=== PATIENT | female | born 1965 | race Caucasian/White ===

== ENCOUNTER 2020-05-24 13:03 | Emergency (ER) | payer MEDICARE, SELFPAY ==
[~2020-05-24 13:03] MED LIST: BENTYL10 MG PO; CARAFATE1 GM PO; KETOROLAC TROME10 MG PO; LIDOCAINE 5% P1 EACH TOP; MECLIZINE 25MG25 MG PO; MUCINEX 600MG600 MG PO; NEURONTIN300 MG PO; ONDANSETRON ODT4 MG SL; PREDNISONE5 MG PO; PROTONIX 40MG T40 MG PO; SKELAXIN800 MG PO; ZANTAC150 MG PO; ZOFRAN8 MG PO
== END 2020-05-24 15:22 | disposition home or self-care (01) ==
LOC: FER 13:03
DX: G62.9 Polyneuropathy, unspecified (principal); G89.29 Other chronic pain; Z87.39 Personal history of other diseases of the musculoskeletal system and connective tissue; Z79.899 Other long term (current) drug therapy; Z97.0 Presence of artificial eye; Z88.8 Allergy status to other drugs, medicaments and biological substances
CPT/HCPCS: 99283; J1885

== ENCOUNTER 2020-07-19 15:23 | Emergency (ER) | payer MEDICARE, SELFPAY ==
[2020-07-19] MEDS ORDERED: NORCO 5-325 TA1 EACH PO (16:38)
== END 2020-07-19 17:01 | disposition home or self-care (01) ==
LOC: FER 15:23
DX: G62.9 Polyneuropathy, unspecified (principal); G89.29 Other chronic pain
CPT/HCPCS: 99283; J1885

== ENCOUNTER 2020-07-28 19:04 | Emergency (ER) | payer MEDICARE, SELFPAY ==
[~2020-07-28 19:04] MED LIST changes: +NORCO 5-325 TA1 EACH PO
== END 2020-07-28 21:30 | disposition home or self-care (01) ==
LOC: FER 19:04
DX: M54.5 Low back pain (principal); G89.29 Other chronic pain; R20.2 Paresthesia of skin; Z86.69 Personal history of other diseases of the nervous system and sense organs; Z88.8 Allergy status to other drugs, medicaments and biological substances; Z87.39 Personal history of other diseases of the musculoskeletal system and connective tissue
CPT/HCPCS: 99283; J1885

== ENCOUNTER 2020-08-08 16:02 | Emergency (ER) | payer MEDICARE, SELFPAY ==
[2020-08-08] MEDS ORDERED: MEDROL 4MG DOSEP4 MG PO (17:17)
[2021-01-26] MEDS ORDERED: PEPCID AC20 MG PO (12:58)
[2021-01-26] MEDS ORDERED: XANAX0.25 MG PO (12:58)
== END 2020-08-08 18:31 | disposition home or self-care (01) ==
LOC: FER 16:02
DX: L25.9 Unspecified contact dermatitis, unspecified cause (principal); Z88.8 Allergy status to other drugs, medicaments and biological substances
CPT/HCPCS: 99282

== ENCOUNTER 2020-08-15 12:41 | Emergency (ER) | payer MEDICARE, SELFPAY ==
[~2020-08-15 12:41] MED LIST changes: +MEDROL 4MG DOSEP4 MG PO
[2021-01-26] MEDS ORDERED: XANAX0.25 MG PO (12:58)
[2021-01-26] MEDS ORDERED: PEPCID AC20 MG PO (12:58)
== END 2020-08-15 16:08 | disposition home or self-care (01) ==
LOC: FER 12:41
DX: Q80.9 Congenital ichthyosis, unspecified (principal); Z88.8 Allergy status to other drugs, medicaments and biological substances

== ENCOUNTER 2020-10-07 15:01 | Emergency (ER) | payer MEDICARE, SELFPAY | END 2020-10-07 17:39 | disposition home or self-care (01) | LOC: FER 15:01 | DX: G62.9 Polyneuropathy, unspecified (principal); G89.29 Other chronic pain; Z88.8 Allergy status to other drugs, medicaments and biological substances | CPT/HCPCS: J1885; J2405 ==

== ENCOUNTER 2020-12-01 13:46 | Emergency (ER) | payer MEDICARE, SELFPAY ==
[2020-12-01 16:16] LABS: CORONAVIRUS 2019 SARS-COV-2 NEGATIVE (NEGATIVE); INFLUENZA A NAA NEGATIVE (NEGATIVE)
[2020-12-01] MEDS ORDERED: CEFDINIR300 MG PO (16:54)
[2020-12-01] MEDS ORDERED: PREDNISONE5 MG PO (16:54)
[2021-01-26] MEDS ORDERED: PEPCID AC20 MG PO (12:58)
[2021-01-26] MEDS ORDERED: XANAX0.25 MG PO (12:58)
== END 2020-12-01 17:40 | disposition home or self-care (01) ==
LOC: FER 13:46
PROVIDERS: Emergency Medicine
DX: J01.90 Acute sinusitis, unspecified (principal); Z88.6 Allergy status to analgesic agent; Z88.4 Allergy status to anesthetic agent; Z88.2 Allergy status to sulfonamides; Z20.822 Contact with and (suspected) exposure to COVID-19
CPT/HCPCS: J1885; J7512; U0002

== ENCOUNTER 2021-01-11 12:08 | Emergency (ER) | payer MEDICARE ==
[~2021-01-11 12:08] MED LIST changes: +CEFDINIR300 MG PO
[2021-01-11 12:54] LABS: BASOPHIL 0.7 % (0-2); EOSINOPHIL 1.2 % (0-5); HCT 42.9 % (37.0-47.0); LYMPHOCYTE 23.8 % (15-48); MCH 29.4 pg (25.0-31.0); MCHC 32.6 g/dL (32.0-36.0); MCV 89.9 fL (78.0-100.0); MONOCYTE 6.8 % (0-12); MPV 10.6 fL (6.0-9.5); NRBC 0; PLT 259 K/uL (150-400); RBC 4.77 M/uL (4.20-5.40); RDW 13.2 % (11.5-14.0); WBC 7.5 K/uL (4.0-10.5)
[2021-01-11 12:55] LABS: BILIRUBIN NEGATIVE (NEGATIVE); BLOOD NEGATIVE Ery/uL (NEGATIVE); CLARITY CLEAR (CLEAR); COLOR YELLOW (YELLOW); GLUCOSE (U) NORMAL (NORMAL); LEUKOCYTES NEGATIVE Leu/uL (NEGATIVE); NITRITE NEGATIVE (NEGATIVE); PROTEIN NEGATIVE (NEGATIVE); UROBILINOGEN 0.2 mg/dL (0.2-1.0)
[2021-01-11 13:11] LABS: ALBUMIN 3.7 g/dL (3.4-5.0); BILIRUBIN - TOTAL 0.3 mg/dL (0.2-1.0); BUN/CREAT RATIO (CALC) 18.1 RATIO; CREATININE 0.94 mg/dL (0.51-0.95); GLOBULIN (CALCULATION) 3.9 g/dL; POTASSIUM 3.8 mmol/L (3.5-5.1); TOTAL PROTEIN 7.6 g/dL (6.4-8.2)
[2021-01-11] MEDS ORDERED: ONDANSETRON ODT4 MG PO (17:41)
[2021-01-26] MEDS ORDERED: XANAX0.25 MG PO (12:58)
[2021-01-26] MEDS ORDERED: PEPCID AC20 MG PO (12:58)
== END 2021-01-11 17:57 | disposition home or self-care (01) ==
LOC: FER 12:08
PROVIDERS: Emergency Medicine
DX: R10.11 Right upper quadrant pain (principal); R11.0 Nausea; R19.7 Diarrhea, unspecified; R30.0 Dysuria; Z88.2 Allergy status to sulfonamides; Z88.6 Allergy status to analgesic agent; Z88.4 Allergy status to anesthetic agent
CPT/HCPCS: 36415; 80053; 81003; 82150; 83690; 85025; 99284

== ENCOUNTER 2021-01-21 11:59 | Emergency (ER) | payer MEDICARE ==
[~2021-01-21 11:59] MED LIST changes: +ONDANSETRON ODT4 MG PO
[2021-01-21 13:49] LABS: BASOPHIL 0.6 % (0-2); HCT 42.1 % (37.0-47.0); HGB 13.9 g/dl (12.5-16.0); LYMPHOCYTE 23.2 % (15-48); MCH 29.6 pg (25.0-31.0); MCV 89.8 fL (78.0-100.0); MONOCYTE 7.4 % (0-12); MPV 10.5 fL (6.0-9.5); NEUTROPHIL 67.2 % (41-80); NRBC 0; PLT 264 K/uL (150-400); RBC 4.69 M/uL (4.20-5.40); RDW 13.5 % (11.5-14.0); WBC 8.3 K/uL (4.0-10.5)
[2021-01-21 13:53] LABS: BILIRUBIN NEGATIVE (NEGATIVE); BLOOD NEGATIVE Ery/uL (NEGATIVE); CLARITY CLEAR (CLEAR); COLOR YELLOW (YELLOW); GLUCOSE (U) NORMAL (NORMAL); LEUKOCYTES NEGATIVE Leu/uL (NEGATIVE); NITRITE NEGATIVE (NEGATIVE); PROTEIN NEGATIVE (NEGATIVE); UROBILINOGEN 0.2 mg/dL (0.2-1.0)
[2021-01-21 14:04] LABS: ALBUMIN 3.7 g/dL (3.4-5.0); BILIRUBIN - TOTAL 0.2 mg/dL (0.2-1.0); BUN/CREAT RATIO (CALC) 14.1 RATIO; CREATININE 0.92 mg/dL (0.51-0.95); GLOBULIN (CALCULATION) 3.8 g/dL; POTASSIUM 4.1 mmol/L (3.5-5.1); TOTAL PROTEIN 7.5 g/dL (6.4-8.2)
[2021-01-21] MEDS ORDERED: BENTYL10 MG PO (15:25)
[2021-01-26] MEDS ORDERED: XANAX0.25 MG PO (12:58)
[2021-01-26] MEDS ORDERED: PEPCID AC20 MG PO (12:58)
== END 2021-01-21 16:01 | disposition home or self-care (01) ==
LOC: FER 11:59
PROVIDERS: Nurse Practitioner Family
DX: R10.84 Generalized abdominal pain (principal); R11.0 Nausea; F41.9 Anxiety disorder, unspecified; Z90.49 Acquired absence of other specified parts of digestive tract; Z88.5 Allergy status to narcotic agent; Z88.8 Allergy status to other drugs, medicaments and biological substances; Z88.4 Allergy status to anesthetic agent; Z79.899 Other long term (current) drug therapy
CPT/HCPCS: 36415; 80053; 81003; 82150; 83690; 85025; J1885; J2270; J2405; J7030; Q9967

== ENCOUNTER → 2021-02-10 | Day surgery (SDC) | payer MEDICARE ==
[~2021-02-10] VITALS: Ht 182.9 cm; Wt 99.8 kg
[~2021-02-10] MED LIST changes: +ALPRAZOLAM0.25 MG PO; +COLESTID1 GM PO; +FLONASE ALLER15.8 ML; +PEPCID AC20 MG PO; +PROBIOTIC1 EAC1 PO; +XANAX0.25 MG PO
== END | disposition home or self-care (01) ==
LOC: FAS 08:24
DX: K21.9 Gastro-esophageal reflux disease without esophagitis (principal); K31.9 Disease of stomach and duodenum, unspecified; K29.70 Gastritis, unspecified, without bleeding; R10.11 Right upper quadrant pain; M54.81 Occipital neuralgia; Z90.49 Acquired absence of other specified parts of digestive tract; Z88.5 Allergy status to narcotic agent; Z88.8 Allergy status to other drugs, medicaments and biological substances; Z79.899 Other long term (current) drug therapy
CPT/HCPCS: J2704; J7120

== ENCOUNTER 2021-04-27 11:14 | Emergency (ER) | payer MEDICARE ==
[2021-04-27 12:25] LABS: BASOPHIL 0.8 % (0-2); LYMPHOCYTE 22.2 % (15-48); MCH 29.3 pg (25.0-31.0); MCHC 32.5 g/dL (32.0-36.0); MCV 90.1 fL (78.0-100.0); MONOCYTE 7.7 % (0-12); MPV 10.6 fL (6.0-9.5); NEUTROPHIL 66.7 % (41-80); NRBC 0; PLT 212 K/uL (150-400); RBC 4.44 M/uL (4.20-5.40); RDW 13.2 % (11.5-14.0); WBC 8.4 K/uL (4.0-10.5)
[2021-04-27 13:41] LABS: ALBUMIN 3.6 g/dL (3.4-5.0); BILIRUBIN - TOTAL 0.3 mg/dL (0.2-1.0); BUN/CREAT RATIO (CALC) 15.2 RATIO; CREATININE 1.05 mg/dL (0.51-0.95); GLOBULIN (CALCULATION) 3.6 g/dL; POTASSIUM 3.9 mmol/L (3.5-5.1); TOTAL PROTEIN 7.2 g/dL (6.4-8.2)
== END 2021-04-27 14:58 | disposition home or self-care (01) ==
LOC: FER 11:14
PROVIDERS: Internal Medicine
DX: J32.9 Chronic sinusitis, unspecified (principal); Z88.2 Allergy status to sulfonamides; Z88.6 Allergy status to analgesic agent; Z88.4 Allergy status to anesthetic agent
CPT/HCPCS: 36415; 71045; 80053; 83880; 84145; 84484; 85025; 93005

== ENCOUNTER 2021-05-01 08:19 | Emergency (ER) | payer MEDICARE ==
[2021-05-01 09:27] LABS: EOSINOPHIL 2.6 % (0-5); HCT 39.8 % (37.0-47.0); HGB 13.2 g/dl (12.5-16.0); LYMPHOCYTE 38.1 % (15-48); MCH 29.7 pg (25.0-31.0); MCHC 33.2 g/dL (32.0-36.0); MCV 89.6 fL (78.0-100.0); MONOCYTE 6.4 % (0-12); MPV 10.9 fL (6.0-9.5); NEUTROPHIL 51.3 % (41-80); NRBC 0; PLT 216 K/uL (150-400); RBC 4.44 M/uL (4.20-5.40); RDW 13.3 % (11.5-14.0)
[2021-05-01 09:50] LABS: CORONAVIRUS 2019 SARS-COV-2 NEGATIVE (NEGATIVE); INFLUENZA A NAA NEGATIVE (NEGATIVE)
[2021-05-01 09:54] LABS: ALBUMIN 3.5 g/dL (3.4-5.0); BILIRUBIN - TOTAL 0.4 mg/dL (0.2-1.0); BUN/CREAT RATIO (CALC) 16.7 RATIO; CREATININE 1.08 mg/dL (0.51-0.95); GLOBULIN (CALCULATION) 3.3 g/dL; POTASSIUM 3.5 mmol/L (3.5-5.1); TOTAL PROTEIN 6.8 g/dL (6.4-8.2)
== END 2021-05-01 18:02 | disposition other institution (70) ==
LOC: FER 08:19
PROVIDERS: Emergency Medicine
DX: I63.9 Cerebral infarction, unspecified (principal); R55 Syncope and collapse; J06.9 Acute upper respiratory infection, unspecified; Z20.822 Contact with and (suspected) exposure to COVID-19
CPT/HCPCS: 36415; 70450; 71045; 80053; 84484; 85025; 93005; J1885; J7030; U0002

== ENCOUNTER 2021-10-20 12:01 | Emergency (ER) | payer MEDICARE ==
[2021-10-20 12:31] LABS: BASOPHIL 0.5 % (0-2); EOSINOPHIL 0.5 % (0-5); HCT 41.9 % (37.0-47.0); HGB 13.7 g/dl (12.5-16.0); MCH 29.3 pg (25.0-31.0); MCHC 32.7 g/dL (32.0-36.0); MCV 89.5 fL (78.0-100.0); MONOCYTE 7.9 % (0-12); MPV 10.5 fL (6.0-9.5); NEUTROPHIL 58.7 % (41-80); NRBC 0; PLT 215 K/uL (150-400); RBC 4.68 M/uL (4.20-5.40); RDW 13.7 % (11.5-14.0); WBC 5.7 K/uL (4.0-10.5)
[2021-10-20 12:42] LABS: INR 0.97 (0.9-1.2); PROTHROMBIN TIME 12.3 SECONDS (11.8-13.4)
[2021-10-20 12:50] LABS: ALBUMIN 3.6 g/dL (3.4-5.0); BILIRUBIN - TOTAL 0.2 mg/dL (0.2-1.0); BUN/CREAT RATIO (CALC) 16.2 RATIO; CREATININE 1.05 mg/dL (0.51-0.95); GLOBULIN (CALCULATION) 3.4 g/dL; POTASSIUM 3.6 mmol/L (3.5-5.1)
[2021-10-20] MEDS ORDERED: VENTOLIN HFA18 GM INH (14:29)
== END 2021-10-20 14:40 | disposition home or self-care (01) ==
LOC: FER 12:01
PROVIDERS: Emergency Medicine
DX: U07.1 COVID-19 (principal); Z28.310 Unvaccinated for COVID-19; Z88.4 Allergy status to anesthetic agent; Z88.5 Allergy status to narcotic agent
CPT/HCPCS: 36415; 71045; 80053; 84484; 85025; 85379; 85610; 85730; 93005

== ENCOUNTER 2021-11-20 13:56 | Emergency (ER) | payer MEDICARE ==
[~2021-11-20 13:56] MED LIST changes: +VENTOLIN HFA18 GM INH
[2021-11-20] MEDS ORDERED: BENTYL10 MG PO (16:44)
== END 2021-11-20 17:14 | disposition home or self-care (01) ==
LOC: FER 13:56
DX: R10.10 Upper abdominal pain, unspecified (principal); R19.7 Diarrhea, unspecified; Z28.310 Unvaccinated for COVID-19; Z88.5 Allergy status to narcotic agent; Z88.8 Allergy status to other drugs, medicaments and biological substances
CPT/HCPCS: J2405; J7030